=== PATIENT | male | born 1995 | race Two or more races ===

== ENCOUNTER 2017-06-23 16:20 | Emergency (ER) | payer SELFPAY | END 2017-06-23 19:24 | disposition home or self-care (01) | LOC: FTE 16:20 | DX: S60.447A External constriction of left little finger, initial encounter (principal); F17.210 Nicotine dependence, cigarettes, uncomplicated; W49.04XA Ring or other jewelry causing external constriction, initial encounter; Y92.9 Unspecified place or not applicable | CPT/HCPCS: 99282 ==

== ENCOUNTER 2018-02-04 22:00 | Emergency (ER) | payer BC | END 2018-02-05 00:34 | disposition home or self-care (01) | LOC: FTE 02-05 00:34 | DX: K59.00 Constipation, unspecified (principal); F17.210 Nicotine dependence, cigarettes, uncomplicated | CPT/HCPCS: 74019; 99283-25 ==

== ENCOUNTER 2018-03-26 04:38 | Emergency (ER) | payer BC ==
[2018-03-26] MEDS: LIDOCAINE 1% (MDV) 20 ML INJ SC (05:36)
== END 2018-03-26 06:18 | disposition home or self-care (01) ==
LOC: FTE 04:38
DX: M79.645 Pain in left finger(s) (principal); Z87.891 Personal history of nicotine dependence; Z91.14 Patient's other noncompliance with medication regimen
CPT/HCPCS: 64450; 99283-25